=== PATIENT | female | born 1980 | race African-American/Black ===

== ENCOUNTER 2020-10-25 09:23 | Outpatient (CLI) | payer OTHER ==
[2020-10-25 09:59] LABS: CALCIUM, SERUM 8.8 mg/dL (8.5-10.1); CREATININE 0.7 mg/dL (0.6-1.3); POTASSIUM 4.1 mmol/L (3.5-5.1)
== END 2020-10-25 23:59 | disposition home or self-care (01) ==
LOC: RAD 09:23
PROVIDERS: ATTEND Internal Medicine Interventional Cardiology
DX: R94.4 Abnormal results of kidney function studies (principal)
CPT/HCPCS: 36415; 80048-TC; 84702-TC

== ENCOUNTER 2022-08-28 20:18 | Emergency (ER) | payer OTHER ==
[~2022-08-28] VITALS: Ht 157.5 cm; Wt 63.5 kg
--- NOTE | 2022-08-28 20:34 | NUR ---
BIBS. TO ER BED 5. AAOX4. NOT IN RESP DISTRESS, BREATHING EVEN AND UNLABORED. SATTING @ 98% ON RA. AMBULATORY ON STAEDY GAIT. PT CAME IN FOR A MID STERNAL CHEST PAIN WHICH STARTED 1 HR SKEIN DRIER. PAIN IS 8/10 NON RADIAITNG CONSTANT. PT REPORTS THAT SHE STARTED TO HAVE COUGHING AFTER SHE GOT HER FLU SHOT BACK ON AUG 04. EKG WAS DONE. MD WAS AT THE BEDSIDE. ORDERS RECEIVED AND NOTED
[2022-08-28 21:01] LABS: BASOPHILS % (AUTO) 0.3 % (0.0-2.0); EOSINOPHILS % (AUTO) 0.7 % (0.0-6.0); HEMATOCRIT 38 % (33-45); HEMOGLOBIN 12.2 g/dL (11.5-14.8); LYMPHOCYTES # (AUTO) 1.4 K/uL (0.8-4.8); LYMPHOCYTES % (AUTO) 11.7 % (20.0-44.0); MEAN CORPUSCULAR HGB CONC 33 g/dl (31.0-36.0); MEAN CORPUSCULAR VOLUME 89 fL (82-100); MONOCYTES # (AUTO) 0.7 K/uL (0.1-1.30); MONOCYTES % (AUTO) 5.9 % (2.0-12.0); NEUTROPHILS # (AUTO) 9.9 K/uL (1.8-8.9); NEUTROPHILS % (AUTO) 81.4 % (43.0-81.0); PLATELET COUNT (AUTO) 339 K/uL (150-450); RED BLOOD CELL COUNT(AUTO) 4.25 MIL/uL (4.0-5.2); WHITE BLOOD COUNT (AUTO) 12.1 K/uL (4.3-11.0)
[2022-08-28] MEDS ORDERED: EPINEPHRINE (1:1000) 1 MG/ML AMPUL ONE (21:03)
[2022-08-28] MEDS ORDERED: methylPREDNISolone SOD SUCC 125 MG/2ML VIAL ONE (21:03)
--- NOTE | 2022-08-28 21:06 | NUR ---
20G IV STARTED AT [facility]. BLOOD DRAWN AND SENT TO LAB
[2022-08-28] MEDS: methylPREDNISolone SOD SUCC 125 MG/2ML VIAL IV ONE (21:11)
[2022-08-28] MEDS: EPINEPHRINE (1:1000) 1 MG/ML AMPUL SUBCUT ONE (21:11)
[2022-08-28] MEDS: ALBUTEROL FS 2.5 MG/3 ML VIAL.NEB NEB ONE (21:15)
[2022-08-28] MEDS: IPRATROPIUM NEB FS 0.5 MG/2.5 ML AMPUL.NEB NEB ONE (21:15)
[2022-08-28] MEDS ORDERED: ALBUTEROL FS 2.5 MG/3 ML VIAL.NEB ONE (21:17)
[2022-08-28] MEDS ORDERED: IPRATROPIUM NEB FS 0.5 MG/2.5 ML AMPUL.NEB ONE (21:17)
[2022-08-28 21:22] LABS: CALCIUM, SERUM 9.4 mg/dL (8.5-10.1); CREATININE 0.9 mg/dL (0.6-1.3); POTASSIUM 3.8 mmol/L (3.5-5.1)
[2022-08-28] MEDS ORDERED: BUDE10.2 INH ×2 (21:36→21:42)
[2022-08-28] MEDS ORDERED: PRED50TA PO ×2 (21:36→21:42)
--- NOTE | 2022-08-28 21:52 | NUR ---
Patient discharged to home in stable condition. Written and verbal after care instructions given. Patient verbalizes understanding of instruction.IV removed. Catheter intact and site benign. Pressure and 4x4 applied to site. No bleeding noted.
[2022-08-28 21:53] VITALS: BP 117/75
== END 2022-08-28 21:57 | disposition home or self-care (01) ==
LOC: ER 20:26
DX: J45.901 Unspecified asthma with (acute) exacerbation (principal); M32.9 Systemic lupus erythematosus, unspecified; Z79.899 Other long term (current) drug therapy
CPT/HCPCS: 99285; 96374; 71045; 93005 ×2; 85025; 80048; 36415; 94640; 96372; J0171; J2930